=== PATIENT | female | born 2000 | race Two or more races ===

== ENCOUNTER 2023-01-22 03:28 | Emergency (ER) | payer SELFPAY ==
[2023-01-22 03:43] VITALS: PULSE 100
== END 2023-01-22 03:45 | disposition left against medical advice (07) ==
LOC: EDBD 03:28 → ER 03:28
DX: T65.91XA Toxic effect of unspecified substance, accidental (unintentional), initial encounter (principal); R07.89 Other chest pain; Z53.21 Procedure and treatment not carried out due to patient leaving prior to being seen by health care provider; Y92.89 Other specified places as the place of occurrence of the external cause
CPT/HCPCS: 93005